=== PATIENT | male | born 1980 | race Hispanic/Latino ===

== ENCOUNTER 2017-10-07 20:36 | Emergency (ER) | payer BC ==
[2017-10-07] MEDS ORDERED: Sodium Chloride 0.9% 1,000 ML IV STA (21:05)
[2017-10-07] MEDS ORDERED: DiphenhydrAMINE 50 mg/ml Inj IV STA (21:05)
[2017-10-07] MEDS ORDERED: Famotidine 20mg/50ml 40 MG/100 ML BAG IVPB STA (21:24)
[2017-10-07] MEDS ORDERED: Famotidine 20mg/50ml 20 MG/50 ML BAG IVPB ONE (21:31)
--- NOTE | 2017-10-07 21:43 | ED PDOC ---
HPI: Allergic Reaction Time Seen by Provider: 10/07/17 20:59 Chief Complaint (Nursing): Allergic Reaction Chief Complaint (Provider): Allergic reaction History Per: Patient History/Exam Limitations: no limitations Onset/Duration Of Symptoms: Hrs Current Symptoms Are (Timing): Still Present Possible Cause: Medication Associated Symptoms: Skin Rash, Swelling Home/EMS Treatment: Benadryl Additional History Per: Patient Additional Complaint(s): 37yo male, presents to ED with complaints of a generalized rash. Patient states he was diagnosed with sinusitis today and took Augmentin and Flonase after which he noted a diffuse generalized itchy rash, including some swelling to his lips. He denies any shortness of breath, throat swelling or trouble swallowing. He reports taking 15ml of children's Benadry after which he noticed some resolution in his symptoms. Patient offers no other medical complaints. PMD: None provided Past Medical History Reviewed: Historical Data, Nursing Documentation, Vital Signs Vital Signs: Last Vital Signs Temp 97.1 F L 10/07/17 20:40 Pulse 72 10/07/17 20:40 Resp 20 10/07/17 20:40 BP 148/93 H 10/07/17 20:40 Pulse Ox 98 10/07/17 20:40 - Medical History PMH: No Chronic Diseases - Surgical History Surgical History: No Surg Hx - Family History Family History: States: No Known Family Hx - Social History Alcohol: Occasional - Home Medications Home Medications: Ambulatory Orders Medication Instructions Recorded Azithromycin [Zithromax] 250 mg PO QAM #1 pkg 10/07/17 Cetirizine HCl [Zyrtec] 10 mg PO QAM #10 capsule 10/07/17 predniSONE [predniSONE Tab] 60 mg PO QAM #12 tab 10/07/17 - Allergies Allergies/Adverse Reactions: Allergies Allergy/AdvReac Type Severity Reaction Status Date / Time amoxicillin [From Augmentin] Allergy RASH Verified 10/07/17 20:40 clavulanic acid Allergy RASH Verified 10/07/17 20:40 [From Augmentin] Review of Systems ROS Statement: Except As Marked, All Systems Reviewed And Found Negative ENT: Positive for: Mouth Swelling (mild lip swelling). Negative for: Throat Swelling Respiratory: Negative for: Shortness of Breath Skin: Positive for: Rash Physical Exam - Reviewed Nursing Documentation Reviewed: Yes Vital Signs Reviewed: Yes - Physical Exam Appears: Positive for: Non-toxic, No Acute Distress Head Exam: Positive for: ATRAUMATIC, NORMAL INSPECTION, NORMOCEPHALIC Skin: Positive for: Warm, Dry, Rash (diffuse urticarial rash) Eye Exam: Positive for: Normal appearance ENT: Positive for: Other (no lip swelling noted) Neck: Positive for: Supple Cardiovascular/Chest: Positive for: Regular Rate, Rhythm Respiratory: Positive for: Normal Breath Sounds. Negative for: Wheezing Extremity: Positive for: Normal ROM. Negative for: Pedal Edema Neurologic/Psych: Positive for: Alert, Oriented. Negative for: Motor/Sensory Deficits - ECG O2 Sat by Pulse Oximetry: 98 (RA) Pulse Ox Interpretation: Normal Disposition - Clinical Impression Clinical Impression: Acute allergic reaction - Disposition Referrals: Michael Turner MD [Staff Provider] - Disposition: Routine/Home Disposition Time: 22:46 Condition: STABLE Prescriptions: Azithromycin [Zithromax] 250 mg PO QAM #1 pkg Cetirizine HCl [Zyrtec] 10 mg PO QAM #10 capsule predniSONE [predniSONE Tab] 60 mg PO QAM #12 tab Instructions: Drug Allergy Forms: [employer] ([place]) Medical Decision Making Medical Decision Making: Impression: Acute allergic reaction Plan: -- Benadryl -- Pepcid 40mg IVPB -- Solumedrol 125mg IVP -- IV Fluids Time: 2246 Patient reports marked improvement in symptoms; stable for discharge home. Patient given prescription for prednisone and antibiotics changed to zithromax. Patient instructed to stop taking penicillin until he gets evaluated by an gyn. Scribe Attestation: Documented by Marian Cordon, acting as a scribe for Rolando Sommer MD. Provider Attestation: All medical record entries made by the Scribe were at my direction and personally dictated by me. I have reviewed the chart and agree that the record accurately reflects my personal performance of the history, physical exam, medical decision making, and the department course for this patient. I have also personally directed, reviewed, and agree with the discharge instructions and disposition.
[2017-10-07 23:59] VITALS: BP 132/85; PULSE 60; RESP 17; TEMP 98.4; O2SAT 95
== END 2017-10-08 00:15 | disposition home or self-care (01) ==
LOC: H.ER 20:36
DX: T78.40XA Allergy, unspecified, initial encounter (principal); Z88.0 Allergy status to penicillin
CPT/HCPCS: 96374; 99284; J1200; J2930; J7030